=== PATIENT | male | born 1965 | race Caucasian/White ===

== ENCOUNTER 2023-08-10 19:17 | Emergency (ER) | payer OTHER ==
[2023-08-10] MEDS ORDERED: KETOROLAC TROMETHAMINE 60 MG/2 ML VIAL IM ONE (19:39)
[2023-08-10 20:11] VITALS: BP 154/107; PULSE 79; RESP 18; TEMP 99.2; BMI 35.7
== END 2023-08-10 19:58 | disposition home or self-care (01) ==
LOC: FER 19:17
PROC: 3E0233Z Introduction of Anti-inflammatory into Muscle, Percutaneous Approach (ICD-10-PCS; principal; 2023-08-10)
DX: J02.9 Acute pharyngitis, unspecified (principal); R50.9 Fever, unspecified; M79.10 Myalgia, unspecified site; M25.551 Pain in right hip; J06.9 Acute upper respiratory infection, unspecified; Z20.822 Contact with and (suspected) exposure to COVID-19
CPT/HCPCS: 0241U-QW; 87651; 99284-25